=== PATIENT | female | born 1990 | race Caucasian/White ===

== ENCOUNTER 2018-12-24 17:28 | Outpatient (CLI) | payer OTHER ==
[~2018-12-24] VITALS: Ht 170.2 cm; Wt 105.5 kg
[2018-12-24] MEDS ORDERED: PNV11TAB PO (17:51)
[2018-12-24 17:52] VITALS: BP 125/60; PULSE 96; RESP 19; Ht 170.2 cm; Wt 105.5 kg
--- NOTE | 2018-12-24 23:27 | HP ---
Date/Time of Note Date/Time of Note DATE: 12/24/18 TIME: 23:23 OB - History Hx of Present Free Text/Dictation 28 YO with IUP at 32.2 weeks with EDC 02/14/2019 who reports to L&D due to cramping, vaginal spotting and elevated BP in office. she denies any vaginal bleeding or cramps or pain or back pain in triage. all her BPs are normal. she had normal sono, negative FFN and normal PIH labs. her cervix is long and closed. she desires to go home. PIH precautions given by me. she is asked to see NEV in 2 days for BP recheck. Care: [facility] Care Ultrasounds: Normal mid trimester US Obstetrical Complications: None Medical Complications: None Past Family/Social History * Past Medical, Surgical, Family and Obstetric Histories reviewed from chart. OB Admission Exam Vital Signs Vital Signs Vital Signs Date Temp Pulse Resp B/P (MAP) Pulse Ox O2 O2 Flow FiO2 Time Delivery Rate 12/24/18 98.2 96 19 125/60 Room Air 17:52 (81) Physical Exam HEENT: WNL Heart: Rhythm Normal Lungs: Clear, Equal Abdomen: WNL Extremities: Normal Reflexes: Normal Cervical Dilatation: None Last 72 hours Lab Results CBC & BMP 12/24/18 18:33 Liver Function Test 12/24/18 18:33 Alanine Aminotransferase (ALT/SGPT) 11 L Albumin 3.6 Alkaline Phosphatase 93 Aspartate Amino Transf (AST/SGOT) 13 L Direct Bilirubin 0.00 Total Protein 7.1 OB Assessment/Plan Other Assessment: IUP at 32.4 weeks no evidence of labor or hypertension Other plan: may be discharged home CHEYANNE JACINTO MD Dec 24, 2018 23:27
--- NOTE | 2018-12-25 02:44 | TRIAGE ---
OB Triage Datetime Report Generated by CPN: 12/25/2018 02:44 Datetime: 12/24/2018 21:45 Stage of : OB Triage Datetime: 12/24/2018 21:31 Stage of : OB Triage Labor Evaluation Frequency: Occasional Monitor Mode: External Duration (sec)2399: 40-60 Resting Tone [place]: Relaxed Heart Rate FHR Baseline Rate: 120 Monitor Mode: External US Variability: Moderate 6-25 bpm Accelerations: 15X15 Decelerations: None Category: Category I Pain Assessment Pain Scale: 0 Pain Presence: None/Denies Pain Type: N/A Pain Relief Measures: Comfort Measures Datetime: 12/24/2018 20:33 Stage of : Labor Labor Evaluation Frequency: 8-9 Monitor Mode: External Resting Tone [place]: Relaxed Heart Rate FHR Baseline Rate: 130 Monitor Mode: External US Variability: Moderate 6-25 bpm Decelerations: None Pain Assessment Pain Scale: 0 Pain Presence: None/Denies Pain Type: N/A Pain Relief Measures: Comfort Measures Datetime: 12/24/2018 19:22 Stage of : OB Triage Labor Evaluation Frequency: X4 IN AN HOUR Monitor Mode: External Resting Tone [place]: Relaxed Heart Rate FHR Baseline Rate: 130 Monitor Mode: External US Variability: Moderate 6-25 bpm Accelerations: 15X15 Decelerations: None Category: Category I Datetime: 12/24/2018 18:21 Labor Evaluation Frequency: OCCAS Monitor Mode: External Duration (sec)2399: 50-90 Quality: Mild Pattern: Normal: <= 5 Contractions in 10 Minutes Resting Tone [place]: Relaxed Heart Rate FHR Baseline Rate: 135 Monitor Mode: External US Variability: Moderate 6-25 bpm Accelerations: 15X15 Decelerations: None Category: Category I Datetime: 12/24/2018 17:59 Assessment Type: Triage Maternal Assessment Level of Consciousness: Fully Conscious DTR's/Clonus: DTRs 2+; No Clonus Headache: Denies Blurred Vision: No Respiratory Effort: Unlabored; Regular Rhythm; Equal Expansion Breath Sounds, Left: Clear and Equal Breath Sounds, Right: Clear and Equal Nausea/Vomiting: Denies RUQ Epigastric Pain: Denies Lower Extremities Edema: None Degree: None Upper Extremities Edema: None Degree: None Facial Edema: None Fall Risk Assessment History of Falling: (0) No Secondary Diagnosis: (0) No Ambulatory Aid: (0) Bedrest/Nurse Assist IV Therapy: (0) No Gait: (0) Normal/Bedrest/Immobile Mental Status: (0) Oriented to Own Ability Fall Score: 0 Fall Risk Score Definition: No Risk: No action required Datetime: 12/24/2018 17:58 EGA: 32.4 Datetime: 12/24/2018 17:57 Time of Arrival: 12/24/2018 17:23 Arrived By: Ambulatory Arrived From: Dr. Huang Movement: Present Contractions: Denies/Absent Rupture of Membranes: Denies Vaginal Bleeding: None Vaginal Discharge: Denies Recent Sexual Intercouse: Denies Abdominal Trauma: Not Applicable Patient Complaints: Other Time Provider Notified: 12/24/2018 18:05 Provider Notified: DR JACINTO Initial Plan: NST
== END 2018-12-24 22:05 | disposition home or self-care (01) ==
LOC: L-D 17:28 → OBT 17:28
PROVIDERS: ATTEND Specialist
DX: O26.853 Spotting complicating pregnancy, third trimester (principal); O13.3 Gestational [pregnancy-induced] hypertension without significant proteinuria, third trimester; Z3A.32 32 weeks gestation of pregnancy
CPT/HCPCS: 76817; 80053; 81001; 82731; 85025; Z7500; 81003; G0463

== ENCOUNTER 2019-01-25 22:19 | Outpatient (CLI) | payer OTHER ==
[~2019-01-25] VITALS: Ht 170.2 cm; Wt 108.7 kg
[~2019-01-25 22:19] MED LIST: PNV11TAB PO
[2019-01-25] MEDS ORDERED: FERR134T PO (22:33)
[2019-01-25 22:34] VITALS: BP 126/71; PULSE 90; RESP 20; Ht 170.2 cm; Wt 108.7 kg
--- NOTE | 2019-01-26 01:57 | TRIAGE ---
OB Triage Datetime Report Generated by CPN: 01/26/2019 01:57 Datetime: 01/25/2019 23:52 Heart Rate Comments: U/S AT BEDSIDE Datetime: 01/25/2019 22:44 Heart Rate Comments: REVIEWED BY DR ARDALAN Datetime: 01/25/2019 22:36 Maternal Assessment Level of Consciousness: Keenly Alert, Responsive DTR's/Clonus: DTRs 2+; No Clonus Headache: Denies Blurred Vision: No Respiratory Effort: Unlabored; Regular Rhythm; Equal Expansion Breath Sounds, Left: Clear and Equal Breath Sounds, Right: Clear and Equal Nausea/Vomiting: Denies RUQ Epigastric Pain: Denies Facial Edema: None Fall Risk Assessment History of Falling: (0) No Secondary Diagnosis: (0) No Ambulatory Aid: (0) Bedrest/Nurse Assist IV Therapy: (0) No Gait: (0) Normal/Bedrest/Immobile Mental Status: (0) Oriented to Own Ability Fall Score: 0 Fall Risk Score Definition: No Risk: No action required Datetime: 01/25/2019 22:35 Time of Arrival: 01/25/2019 22:14 EGA: 37.1 Arrived By: Ambulatory Arrived From: Home Chief Complaint: UCS, DFM Movement: Decreased Contractions: Irregular Time Contractions Began: 01/25/2019 16:00 Contractions: 7 MIN Rupture of Membranes: Denies Vaginal Bleeding: None Vaginal Discharge: Denies Recent Sexual Intercouse: Denies Abdominal Trauma: Not Applicable Patient Complaints: Contractions Time Provider Notified: 01/25/2019 22:40 Provider Notified: ARDALAN Initial Plan: NST, SVE Datetime: 01/25/2019 22:31 Pain Assessment Pain Scale: 6 Pain Presence: Intermittent Pain Type: Contraction Pain Location: Abdomen; Back Pain Goal: 6 Pain Relief Measures: Comfort Measures Pain Assessment Comments: STATES PAIN IS TOLERABLE Datetime: 12/24/2018 17:59 Fall Score: 0 Fall Risk Score Definition: No Risk: No action required Datetime: 12/24/2018 17:58 EGA: 32.4
--- NOTE | 2019-01-26 04:58 | PN ---
Triage Information Date/Time January 25, 2019 Reason for visit: Uterine contractions Weeks of Gestation 37 weeks and 1 day /Para 5 para 2 Diabetes: none Hypertention: none Additional information 28-year-old G5, P2 with IUP at 37 weeks and 1 day with care with [facility] here today for rule out labor and due to decreased movement. Patient was checked in the clinic yesterday and she was 3 cm dilated. She denies any vaginal bleeding. She reports some contractions. Patient antepartum course also was complicated by GDM A1. Patient had been followed by NST twice a week. 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 Objective Vital Signs Date Temp Pulse Resp B/P (MAP) Pulse Ox O2 O2 Flow FiO2 Time Delivery Rate 01/25/19 98.7 90 20 126/71 Room Air 22:34 (89) Heart Rate: 130's Heart Rate Comments Category 1 Contractions: 6-10 Minutes Apart Exam General appearance: Alert and oriented x4 does not appear to be in any acute distress Abdomen: Soft, gravid, fundal height consider gestational age NST: Category 1 BPP: 02/28 Patient did not show any cervical change after observation Results/Medications Results 24 hrs Laboratory Tests Test 01/25/19 22:20 Urine Color YELLOW Urine Clarity CLEAR Urine pH 6.0 Urine Specific [place] 1.014 Urine Ketones NEGATIVE Urine Nitrite NEGATIVE Urine Bilirubin NEGATIVE Urine Urobilinogen NEGATIVE Urine Leukocyte Esterase NEGATIVE Urine Hemoglobin NEGATIVE Urine Glucose NEGATIVE Urine Total Protein NEGATIVE Disposition: Discharge Assessment/Plan IUP at 37 weeks and 1 day False labor. No cervical change noted Symptoms resolved after hydration testing reassuring Patient has been feeling movement very well after hydration Advised to return to triage in 3 days for NST/BPP Strict labor precautions and kick count discussed Patient verbalized understanding. All questions were answered to patient's best satisfaction. BALTAZAR ROBERTS MD Jan 26, 2019 04:58
== END 2019-01-26 00:52 | disposition home or self-care (01) ==
LOC: OBT 22:19 → L-D 22:19 → OBT 01-26 00:52
PROVIDERS: ATTEND Specialist
DX: O47.1 False labor at or after 37 completed weeks of gestation (principal); Z3A.37 37 weeks gestation of pregnancy
CPT/HCPCS: 76815; 76818; 81003; Z7500; G0463

== ENCOUNTER 2019-02-01 14:01 | Inpatient (IN) | payer OTHER ==
[~2019-02-01] VITALS: Ht 170.2 cm; Wt 107.2 kg
[~2019-02-01 14:01] MED LIST changes: +FERR134T PO
[2019-02-01 14:04] VITALS: Ht 170.2 cm; Wt 107.2 kg
[2019-02-01] MEDS ORDERED: LACTATED RINGER'S 1,000 ML IV PRN (14:43)
[2019-02-01] MEDS ORDERED: LACTATED RINGER'S 1,000 ML IV SCH (14:43)
[2019-02-01] MEDS ORDERED: MINERAL OIL LIGHT 10 ML VIAL TOP PRN (15:00)
[2019-02-01] MEDS ORDERED: BUTORPHANOL 2 MG INJ IV PRN (15:00)
[2019-02-01] MEDS ORDERED: LIDOCAINE 1% (MPF) 30 ML INJ INJ PRN (15:00)
[2019-02-01] MEDS ORDERED: OXYTOCIN 30 UNITS/LR 500 ML IV SCH ×3 (15:00)
[2019-02-01] MEDS ORDERED: OXYTOCIN 30 UNITS/LR 500 ML IV PRN (15:00)
[2019-02-01] MEDS ORDERED: AMPICILLIN 2 GM/NS (PMX) 100 ML IV ONE (15:00)
[2019-02-01] MEDS ORDERED: METHYLERGONOVINE 0.2 MG INJ IM PRN (15:00)
[2019-02-01] MEDS ORDERED: IBUPROFEN 600 MG TAB PO PRN (15:00)
[2019-02-01] MEDS ORDERED: MISOPROSTOL 200 MCG TAB PR PRN (15:00)
[2019-02-01] MEDS ORDERED: CARBOPROST 250 MCG INJ IM PRN (15:00)
--- NOTE | 2019-02-01 15:02 | TRIAGE ---
OB Triage Datetime Report Generated by CPN: 02/01/2019 15:02 Datetime: 02/01/2019 14:12 Vaginal Exam Dilatation (cms): 4.0 Effacement (%): 60 Station: -3 Exam By: TM Datetime: 02/01/2019 14:09 Assessment Type: Triage Maternal Assessment Level of Consciousness: Keenly Alert, Responsive DTR's/Clonus: DTRs 2+; No Clonus Headache: Denies Blurred Vision: No Respiratory Effort: Unlabored; Regular Rhythm; Equal Expansion Breath Sounds, Left: Clear and Equal Breath Sounds, Right: Clear and Equal Nausea/Vomiting: Denies RUQ Epigastric Pain: Denies Lower Extremities Edema: Bilateral Lower Extremities Degree: 1+ Upper Extremities Edema: Bilateral Upper Extremities Degree: 1+ Facial Edema: None Fall Risk Assessment History of Falling: (0) No Secondary Diagnosis: (0) No Ambulatory Aid: (0) Bedrest/Nurse Assist IV Therapy: (0) No Gait: (0) Normal/Bedrest/Immobile Mental Status: (0) Oriented to Own Ability Fall Score: 0 Fall Risk Score Definition: No Risk: No action required Datetime: 02/01/2019 14:00 Time of Arrival: 02/01/2019 14:00 EGA: 38.1 Arrived By: Ambulatory Arrived From: Home Chief Complaint: UC Movement: Present Contractions: Regular Rupture of Membranes: Denies Vaginal Bleeding: Normal Show Vaginal Discharge: Denies Recent Sexual Intercouse: Denies Abdominal Trauma: Not Applicable Patient Complaints: Contractions Time Provider Notified: 02/01/2019 14:33 Provider Notified: Leonie Initial Plan: NST Datetime: 01/26/2019 00:34 Labor Evaluation Frequency: X2 Monitor Mode: External Duration (sec)2399: 50-80 Quality: Mild Pattern: Normal: <= 5 Contractions in 10 Minutes Resting Tone [place]: Relaxed Heart Rate FHR Baseline Rate: 135 Monitor Mode: External US Variability: Moderate 6-25 bpm Accelerations: 15X15 Decelerations: None Category: Category I Datetime: 01/26/2019 00:30 Pain Assessment Pain Scale: 5 Pain Presence: Intermittent Pain Type: Contraction Pain Location: Abdomen; Back Pain Relief Measures: Comfort Measures Pain Assessment Comments: CONTINUES TO STATE THAT PAIN IS TOLERABLE AND HAS DECREASED SINCE RESTING Datetime: 01/26/2019 00:19 Vaginal Exam Dilatation (cms): 3.0 Effacement (%): 20 Station: -3 Membrane Status: Intact Vaginal Bleeding: None Cervix, Consistency: Firm Cervix, Position: Posterior Presentation 'A': Cephalic Datetime: 01/25/2019 23:52 Labor Evaluation Frequency: 3-9 Monitor Mode: External Duration (sec)2399: 40-100 Quality: Mild Pattern: Normal: <= 5 Contractions in 10 Minutes Resting Tone [place]: Relaxed Heart Rate FHR Baseline Rate: 135 Monitor Mode: External US Variability: Moderate 6-25 bpm Accelerations: 15X15 Decelerations: None Category: Category I Datetime: 01/25/2019 23:00 Labor Evaluation Frequency: 4-6 Monitor Mode: External Duration (sec)2399: 50-60 Quality: Mild Pattern: Normal: <= 5 Contractions in 10 Minutes Resting Tone [place]: Relaxed Heart Rate FHR Baseline Rate: 140 Monitor Mode: External US Variability: Moderate 6-25 bpm Accelerations: 15X15 Decelerations: None Category: Category I Datetime: 01/25/2019 22:36 Fall Score: 0 Fall Risk Score Definition: No Risk: No action required Datetime: 01/25/2019 22:35 EGA: 37.1 Datetime: 12/24/2018 17:59 Fall Score: 0 Fall Risk Score Definition: No Risk: No action required Datetime: 12/24/2018 17:58 EGA: 32.4
[2019-02-01 15:30] VITALS: BP 124/61; PULSE 93; RESP 20
--- NOTE | 2019-02-01 18:36 | HP ---
Date/Time of Note Date/Time of Note DATE: 02/01/19 TIME: 18:35 OB - History Hx of Present Free Text/Dictation 28 YO with IUP at 38.5 weeks with EDC 02/14/2019. reported in labor. Care: Good Care Ultrasounds: Normal mid trimester US Obstetrical Complications: None Medical Complications: None Past Family/Social History * Past Medical, Surgical, Family and Obstetric Histories reviewed from chart. OB Admission Exam Vital Signs Vital Signs Vital Signs Date Temp Pulse Resp B/P (MAP) Pulse Ox O2 O2 Flow FiO2 Time Delivery Rate 02/01/19 98.8 93 20 124/61 Room Air 15:30 (82) Physical Exam Cervical Dilatation: 4cm Effacement: 75% Last 72 hours Lab Results CBC & BMP 02/01/19 14:55 OB Assessment/Plan Reason for admission: active labor Plan: Expectant Management Induction Method: per Pitocin Protocol CHEYANNE JACINTO MD Feb 01, 2019 18:36
[2019-02-01] MEDS ORDERED: AMPICILLIN 1 GM/NS (PMX) 50 ML IV SCH (19:00)
[2019-02-01] MEDS ORDERED: MINERAL OIL LIGHT 10 ML VIAL TOP ONE (22:30)
[2019-02-01 23:00] VITALS: BP 129/68; PULSE 86; RESP 20
[2019-02-01 23:15] VITALS: BP 136/67; PULSE 83; RESP 19
[2019-02-01 23:45] VITALS: BP 137/67; PULSE 79; RESP 19
[2019-02-02 01:07] VITALS: BP 133/72; PULSE 76; RESP 18
[2019-02-02] MEDS ORDERED: METHYLERGONOVINE 0.2 MG INJ IM PRN (01:30)
[2019-02-02] MEDS ORDERED: MISOPROSTOL 200 MCG TAB PR PRN (01:30)
[2019-02-02] MEDS ORDERED: OXYCODONE/ASPIRIN (4.88/325) TAB PO PRN (01:30)
[2019-02-02] MEDS ORDERED: DIBUCAINE 1% 30 GM OINT TOP PRN (01:30)
[2019-02-02] MEDS ORDERED: ZOLPIDEM 5 MG TAB PO PRN (01:30)
[2019-02-02] MEDS ORDERED: SENNA/DOCUSATE NA (8.6MG/50MG) TAB PO PRN (01:30)
[2019-02-02] MEDS ORDERED: DIPHENHYDRAMINE 50 MG INJ IV PRN (01:30)
[2019-02-02] MEDS ORDERED: ONDANSETRON 4 MG INJ IV PRN (01:30)
[2019-02-02] MEDS ORDERED: ACETAMINOPHEN 325 MG TAB PO PRN (01:30)
[2019-02-02] MEDS ORDERED: OXYTOCIN 30 UNITS/LR 500 ML IV PRN (01:30)
[2019-02-02] MEDS ORDERED: MAGNESIUM HYDROXIDE 30ML CUP PO PRN (01:30)
[2019-02-02] MEDS ORDERED: CARBOPROST 250 MCG INJ IM PRN (01:30)
--- NOTE | 2019-02-02 01:33 | PN ---
Date/Time of Note Date/Time of Note DATE: 02/02/19 TIME: 01:28 OB Subjective Subjective Subjective Late entry note. Patient seen on 02/01/[address] Hadley's request patient seen and examined. She states good movement. She denies nausea, vomiting, shortness of breath, chest pain, abdomi nal pain between contractions, headache, visual changes, vaginal bleeding. OB Objective Objective Objective General: Patient appears well, alert and oriented, NAD, appropriate mood and affect ABD: gravid, soft, non-tender. Back: No CVA tenderness (B/L) LE: Mild edema. No clubbing, cyanosis, edema, thigh or calf tenderness bilaterally FHT: 140 bpm , moderate variability with acceleration, no deceleration-category I Contractions: Q 1-3 min SVE: 9/100/0/ceph OB Assessment/Plan Other plan: 28 years old 3 para 2-0-0-2 with single intrauterine at 38 weeks and 1 day with a GIORGI of 02/14/2019 in active labor - FHR: Reassuring. No sign of metabolic acidosis- Category I - Contractions: Every 1-3 minutes - Continuous EFM, toco. - Continue current management - Blood type AB+ - Rubella nonimmune, will receive rubella vaccine after delivery - GBS positive, is an ampicillin - Anticipate normal vaginal delivery ELVIA DENIS Feb 02, 2019 01:33
--- NOTE | 2019-02-02 01:36 | LDN ---
Date/Time of Note Date/Time of Note DATE: 02/02/19 TIME: 01:33 Delivery Summary 28 years old 3 para 2-0-0-2 with single intrauterine at 38 weeks and 1 day delivered a viable male over first-degree anterior left labia minora and 1 cm first-degree laceration posterior vaginal wall. Nose and mouth suctioned. Rest of body delivered. Cord clamped and cut. Baby given to the nurse.. Placenta delivered intact and spontaneously with three-vessel cord. Laceration repaired with 3-0 chromic SH needle with local anesthesia. Patient tolerated procedure well. Time of delivery 22:02 Weight 8 pounds 5 ounces 9 at 1 minutes and 9 at 5 minutes EBL 250 mL Weeks of Gestation 38 weeks and 1 day Placenta Delivered: Spontaneously Meconium: none Episiotomy: No Estimated blood loss: 250 Sponge & Needle done & correct: Yes All needle counts correct: Yes Any foreign bodies felt in the: No Delivery Information Sex Infant Sex: male Apgars 1 Minute: 9 5 Minute: 9 10 Minute: 10 Suctioning Nose & mouth suctioned at gin: Yes Umbilical Cord Umbilical cord with: 3 Vessels Cord presentations: no nuchal cord Cord Blood was obtained: Yes Mother & Baby Disposition Disposition Mom & Baby to Maternity; Good: Yes ELVIA DENIS Feb 02, 2019 01:35
[2019-02-02] MEDS: WITCH HAZEL/GLYCERIN PAD PR PRN ×2 (03:47→21:43)
[2019-02-02] MEDS: BENZOCAINE 20% 56 ML SPRAY TOP PRN ×2 (03:47→21:43)
[2019-02-02] MEDS: LANOLIN HPA 1 PKT TOP PRN ×2 (03:47→21:43)
[2019-02-02] MEDS: LACTATED RINGER'S 1,000 ML IV* SCH ×3 (03:48→17:27)
[2019-02-02 04:28] VITALS: BP 113/67; PULSE 86; RESP 18
[2019-02-02] MEDS: IBUPROFEN 600 MG TAB PO SCH ×3 (06:17→17:48)
[2019-02-02] MEDS: DEXTROSE 5%-LR 1,000 ML IV SCH ×3 (07:30→17:27)
[2019-02-02 08:00] VITALS: BP 125/67; PULSE 91; RESP 20
--- NOTE | 2019-02-02 12:54 | QN ---
Documentation Comment PPD #1 Pt is doing well. No pain. Minimal bleeding. is going well. T= 97.8 BP 125/67 Fundus is fir, NT. Lochia minimal. Ext 1+ edema, NT. WBC 12.4 Hgb 10.8 Plts normal. P: Continue care. Plan d/c tomorrow. SEAN LANDEROS MD Feb 02, 2019 12:54
[2019-02-02 16:35] VITALS: BP 129/64; PULSE 82; RESP 18
[2019-02-02 19:30] VITALS: BP 129/67; PULSE 82; RESP 19
[2019-02-03] MEDS: IBUPROFEN 600 MG TAB PO SCH ×3 (00:31→12:34)
[2019-02-03 04:38] VITALS: BP 123/68; PULSE 80; RESP 17
[2019-02-03 08:00] VITALS: BP 115/48; PULSE 80; RESP 19
--- NOTE | 2019-02-03 12:54 | DS ---
Date/Time of Note Date/Time of Note DATE: 02/03/19 TIME: 12:53 Obstetrical Discharge Record Final Diagnosis Final Diagnosis: Term delivered Vaginal Delivery Obstetrical Delivery: Spontaneous Complications Augmentation: No Induction: No Rupture of Membranes: No Condition on Discharge Physical Assessment Voiding: Yes Bowel Movement: Yes Breast: Soft, non-tender, Filling Fundus: Firm Abdomen and Incision: soft, not tender Calf Tenderness: No Patient Condition: Good CHEYANNE JACINTO MD Feb 03, 2019 12:54
[2019-02-04] MEDS ORDERED: MEASLES,MUMPS,RUBELLA VACCINE INJ SC* ONE (09:00)
[2019-02-04] MEDS ORDERED: DIPHTH/TET/ACEL PERTUSS (ADULT) 0.5 ML VIAL IM* ONE (09:00)
--- NOTE | 2019-02-04 15:41 | DELSUM ---
Delivery Summary A-C Datetime Report Generated by CPN: 02/04/2019 15:41 DELIVERY PERSONNEL Bench Shear Operator: Jamie [place] MATERNAL INFORMATION Delivery Anesthesia: None Medications in Delivery: 30u pitocin with lr Delivery QBL (ml): 250 Placenta Cultured: No Maternal Complications: None LABOR SUMMARY EDC: 02/14/2019 00:00 No. Babies in Womb: 1 Attempted: No Labor Anesthesia: None LABOR INFORMATION Reason for Induction: Not Applicable Onset of Labor: 02/01/2019 14:00 Complete Dilatation: 02/01/2019 21:59 Group B Beta Strep: Positive Antibiotics # of Doses: 2- AMPICILLIN Antibiotics Time of Last Dose: 02/01/2019 19:14 Steroids Given: None Reason Steroids Not Administered: Not Applicable MEMBRANES Membranes Rupture Method: Spontaneous Rupture of Membranes: 02/01/2019 18:29 Length of Rupture (hr): 3.55 Amniotic Fluid Color: Clear Amniotic Fluid Amount: Moderate Amniotic Fluid Odor: None STAGES OF LABOR Stage 1 hr: 7 Stage 1 min: 59 Stage 2 hr: 0 Stage 2 min: 3 Stage 3 hr: 0 Stage 3 min: 2 Total Time in Labor hr: 8 Total Time in Labor min: 4 VAGINAL DELIVERY Episiotomy: None Laceration Extension: First Degree Laceration Type: Perineal Laceration Repair: Yes Initial Vag Sponge Count: 10 Final Vag Sponge Count: 20 Initial Vag Sharps Count: 2 Final Vag Sharps Count: 2 Sponge Count Correct: Vaginal Sweep Performed Sharps Count Correct: Yes Count Comment: 10 sponges added BABY A INFORMATION Delivery Date/Time: 02/01/2019 22:02 Method of Delivery: Vaginal Born in Route : No : N/A Forceps: N/A Vacuum Extraction: N/A Shoulder Dystocia : N/A SHOULDER DYSTOCIA BABY A Delivery Date/Time: 02/01/2019 22:02 PRESENTATION/POSITION BABY A Presentation: Cephalic Cephalic Presentation: Vertex Vertex Position: Left Occipital Posterior Breech Presentation: N/A PLACENTA INFORMATION BABY A Placenta Delivery Time : 02/01/2019 22:04 Placenta Method of Delivery: Spontaneous Placenta Status: Delivered SCORES BABY A Heart Rate 1 min: >100 bpm Resp Effort 1 min: Good Cry Reflex Irritability 1 min: Cough/Sneeze/Pulls Away Muscle Tone 1 min: Active Motion Color 1 min: Body [place], Extremit Blue Resuscitation Effort 1 min: Tactile Stimulation SCORE 1 MIN: 9 Heart Rate 5 min: >100 bpm Resp Effort 5 min: Good Cry Reflex Irritability 5 min: Cough/Sneeze/Pulls Away Muscle Tone 5 min: Active Motion Color 5 min: Body [place], Extremit Blue Resuscitation Effort 5 min: Tactile Stimulation SCORE 5 MIN: 9 INFORMATION BABY A Gestational Age at Delivery: 38.1 Gestational Status: Early Term- 37- 38.6 Weeks Outcome : Liveborn, with signs of life Condition : Stable Infant Sex: Male IDENTIFICATION/MEDS BABY A ID Band Number: [id number] ID Band Location: Right Arm; Left Arm Sensor Applied: Yes Sensor Number: [id number] Sensor Location : Cord Clamp Vitamin K Given : Not Given Erythromycin Given: Not Given WEIGHT/LENGTH BABY A Infant Birthweight (gm): 3775 Weight (lb): 8 Weight (oz): 5 Length (in): 19.00 Length (cm): 48.26 CORD INFORMATION BABY A No. Cord Vessels: 3 Nuchal Cord : N/A Cord Blood Taken: Yes Suction: Mouth; Nose
== END 2019-02-03 14:55 | disposition home or self-care (01) | DRG 807 ==
LOC: OBT 14:01 → L-D 14:02 → OBT 14:41 → L-D 14:43 → PP1 22:43
PROVIDERS: ADMIT Specialist; ATTEND Specialist
PROC: 10E0XZZ Delivery of Products of Conception, External Approach (ICD-10-PCS; principal; 2019-02-02)
PROC: 0HQ9XZZ Repair Perineum Skin, External Approach (ICD-10-PCS; 2019-02-02)
DX: O70.0 First degree perineal laceration during delivery (principal); Z37.0 Single live birth; Z3A.38 38 weeks gestation of pregnancy
CPT/HCPCS: 76815; 85025; 85610; 85730; 86592; 86850; 86900; 86901; 87340; 99464; G0463; J0290; J2590; J7120; J7121